=== PATIENT | male | born 1960 | race Caucasian/White ===

== ENCOUNTER → 2016-11-23 | Outpatient (CLI) | payer OTHER ==
[~2016-11-23] MED LIST: ASPCH81; DRV100 PO; MULT-506 PO
--- NOTE | 2016-11-23 14:42 | DIAGNOSTIC IMAGING REPORT ---
LEFT WRIST W/NAVICULAR MIN 3 VIEWS CLINICAL HISTORY: Left wrist pain status post trauma COMPARISON: None. DISCUSSION: No fractures or dislocations are visualized. IMPRESSION: No fractures identified. Electronically signed by: Corby Francois M.D. 11/23/2016 2:40 PM Dictated Date/Time: 11/23/2016 2:40 PM
--- NOTE | 2016-11-23 14:44 | DIAGNOSTIC IMAGING REPORT ---
LEFT THUMB 3 VIEWS CLINICAL HISTORY: Left thumb pain status post trauma COMPARISON: None. DISCUSSION: No acute fractures or dislocations are visualized. There is a deformity involving the base of the proximal phalanx of the thumb which is felt to be old. IMPRESSION: Chronic deformity, possibly related to old trauma, involving the base of the proximal phalanx of the thumb. No acute fractures or dislocations. Electronically signed by: Corby Francois M.D. 11/23/2016 2:41 PM Dictated Date/Time: 11/23/2016 2:40 PM
== END | disposition home or self-care (01) ==
LOC: C.RAD1850 14:26
PROVIDERS: ATTEND Nurse Practitioner Family
DX: M20.002 Unspecified deformity of left finger(s) (principal)